=== PATIENT | female | born 1990 | race African-American/Black ===

== ENCOUNTER 2016-05-16 06:57 | Emergency (ER) | payer OTHER, MEDICAID ==
[~2016-05-16] VITALS: Ht 165.1 cm; Wt 62.0 kg
[2016-05-16 06:59] VITALS: BP 118/72; PULSE 112; RESP 20; TEMP 99; O2SAT 99
--- NOTE | 2016-05-16 07:26 | PD ---
HPI Chief Complaint: Abdominal Pain Time Seen by Provider: 07:24 Travel History International Travel<30 days: No Contact w/Intl Traveler<30days: No Traveled to known affect area: No History of Present Illness HPI 26-year-old female with no significant past medical issues, presents to the ER with several days' history of pelvic pains that started when she had an irregular menses 2 days ago. She states that she was passing large blood clots but it has since stopped bleeding. She states that her last menses was at the end of April. She denies any unusual vaginal discharge, burning on urination , nausea, vomiting, or other symptoms. She states that she has not been sexually active for at least a month and a half. Modifying Factors: None Associated Signs & Symptoms: Pelvic pains, irregular vaginal bleeding Risk Factors: None PFSH Past Medical History LMP: 05/14/16 Social History Tobacco Use: No Allergies-Medications (Allergen,Severity, Reaction): Coded Allergies: No Known Allergies (Unverified , 05/16/16) Reported Meds & Prescriptions Reported Meds & Active Scripts Active No Active Prescriptions or Reported Medications Review of Systems Except as stated in HPI: all other systems reviewed are Neg Physical Exam Narrative GENERAL: Well-nourished, well-developed young -[place] female patient in no acute distress. SKIN: Warm and dry. HEAD: Normocephalic. EYES: No scleral icterus. No injection or drainage. NECK: Supple, trachea midline. CARDIOVASCULAR: Regular rate and rhythm without murmurs, gallops, or rubs. RESPIRATORY: Breath sounds equal bilaterally. No accessory muscle use. GASTROINTESTINAL: Abdomen soft, mild pelvic tenderness without guarding or rebound, nondistended. MUSCULOSKELETAL: No cyanosis, or edema. BACK: Nontender without obvious deformity. No CVA tenderness. Data Data Last Documented VS Vital Signs Date Time Temp Pulse Resp B/P Pulse Ox O2 Delivery O2 Flow Rate FiO2 05/16/16 07:38 18 100 Room Air 05/16/16 06:59 99.0 112 118/72 Orders Complete Blood Count With Diff (05/16/16 07:20) Comprehensive Metabolic Panel (05/16/16 07:20) Lipase (05/16/16 07:20) Urinalysis - C+S If Indicated (05/16/16 07:20) Iv Access Insert/Monitor (05/16/16 07:20) Ecg Monitoring (05/16/16 07:20) Oximetry (05/16/16 07:20) Sodium Chloride 0.9% Flush (Ns Flush) (05/16/16 07:30) Ed Urine Pregnancytest Poc (05/16/16 07:20) Urine Culture (05/16/16 07:30) Labs Laboratory Tests Test 05/16/16 05/16/16 07:30 07:35 Urine Color YELLOW Urine Turbidity HAZY Urine pH 6.5 Urine Specific [place] 1.015 Urine Protein NEG mg/dL Urine Glucose (UA) NEG mg/dL Urine Ketones NEG mg/dL Urine Occult Blood TRACE Urine Nitrite NEG Urine Bilirubin NEG Urine Urobilinogen LESS THAN 2.0 MG/DL Urine Leukocyte Esterase LARGE Urine RBC 6 /hpf Urine WBC 19 /hpf Urine Squamous Epithelial 4 /hpf Cells Urine Mucus FEW /lpf Urine Trichomonas FEW Microscopic Urinalysis Comment CULTURE INDICATED White Blood Count 12.1 TH/MM3 Red Blood Count 4.60 MIL/MM3 Hemoglobin 12.4 GM/DL Hematocrit 37.6 % Mean Corpuscular Volume 81.7 FL Mean Corpuscular Hemoglobin 26.9 PG Mean Corpuscular Hemoglobin 32.9 % Concent Red Cell Distribution Width 15.7 % Platelet Count 255 TH/MM3 Mean Platelet Volume 9.5 FL Neutrophils (%) (Auto) 79.9 % Lymphocytes (%) (Auto) 11.7 % Monocytes (%) (Auto) 7.2 % Eosinophils (%) (Auto) 0.7 % Basophils (%) (Auto) 0.5 % Neutrophils # (Auto) 9.7 TH/MM3 Lymphocytes # (Auto) 1.4 TH/MM3 Monocytes # (Auto) 0.9 TH/MM3 Eosinophils # (Auto) 0.1 TH/MM3 Basophils # (Auto) 0.1 TH/MM3 CBC Comment DIFF FINAL Differential Comment Sodium Level 139 MEQ/L Potassium Level 3.8 MEQ/L Chloride Level 105 MEQ/L Carbon Dioxide Level 27.0 MEQ/L Anion Gap 7 MEQ/L Blood Urea Nitrogen 7 MG/DL Creatinine 0.60 MG/DL Estimat Glomerular Filtration 123 ML/MIN Rate Random Glucose 96 MG/DL Calcium Level 8.4 MG/DL Total Bilirubin 0.7 MG/DL Aspartate Amino Transf 12 U/L (AST/SGOT) Alanine Aminotransferase 13 U/L (ALT/SGPT) Alkaline Phosphatase 78 U/L Total Protein 7.5 GM/DL Albumin 3.7 GM/DL Lipase 91 U/L MDM Medical Decision Making Medical Screen Exam Complete: Yes Emergency Medical Condition: Yes Medical Record Reviewed: Yes Interpretation(s) Laboratory Tests Test 05/16/16 05/16/16 07:30 07:35 Urine Turbidity HAZY (CLEAR) Urine Occult Blood TRACE (NEG) Urine Leukocyte Esterase LARGE (NEG) Urine RBC 6 /hpf (0-3) Urine WBC 19 /hpf (0-5) Urine Mucus FEW /lpf (OCC) Urine Trichomonas FEW (NONE) White Blood Count 12.1 TH/MM3 (4.0-11.0) Mean Corpuscular Hemoglobin 26.9 PG (27.0-34.0) Neutrophils (%) (Auto) 79.9 % (16.0-70.0) Neutrophils # (Auto) 9.7 TH/MM3 (1.8-7.7) Calcium Level 8.4 MG/DL (8.5-10.1) Aspartate Amino Transf 12 U/L (15-37) (AST/SGOT) Differential Diagnosis Pelvic pains, vaginal bleeding, passing clotsdysmenorrhea versus versus UTI Narrative Course Patient is not . Abdomen is benign and I do not suspect an acute intra- abdominal process. Lab work does show some UTI. Patient states that she did have some problems with feeling like she needs to push to go, urinary urgency. I do not suspect acute intra-abdominal processes in this case and she is not , so ectopic is not a consideration here. At this point, my plan would be to treat her UTI and have her follow-up with primary care physician or [facility]. Return for any worsening in symptoms as necessary. The plan has been discussed with her and she states understanding. Diagnosis Primary Impression: UTI (urinary tract infection) Qualified Code: N30.00 - Acute cystitis without hematuria Med/Other Pt SpecificInfo: Prescription(s) given Scripts Phenazopyridine (Pyridium)100 Mg [id number] Mg PO Q8H PRN (DYSURIA) #15 TAB Ref 0 Prov:Praveen Pires MD 05/16/16 Nitrofurantoin Monohydrate Macrocrystals (Macrobid)100 Mg [id number] Mg PO BID 7 Days Ref 0 Prov:Soonthrivera,Rewadee MD 05/16/16 Disposition: 01 DISCHARGE HOME Condition: Stable Praveen Pires MD May 16, 2016 07:26
[2016-05-16] MEDS ORDERED: SODIUM CHLORIDE 0.9% FLUSH 5 ML FLUSH IVF PRN (07:30)
[2016-05-16 07:38] VITALS: RESP 18; O2SAT 100
[2016-05-16 07:45] LABS: BLOOD, URINE TRACE (NEG); COMMENT (UR) CULTURE INDICATED; CULTURE IF INDICATED CULTURE INDICATED; GLUCOSE,URINE NEG (NEG); KETONE, URINE NEG (NEG); MUCUS URINE FEW /lpf (OCC); NITRITE,URINE NEG (NEG); PH, URINE 6.5 (5.0-8.5); SQUAMOUS EPITHELIAL CELL URINE 4 /hpf (0-5); URINE COLOR YELLOW (YELLW/STRAW)
[2016-05-16 07:48] LABS: AUTOMATED NEUTROPHIL # 9.7 TH/MM3 (1.8-7.7); BASOPHIL # 0.1 TH/MM3 (0-0.2); BASOPHIL % 0.5 % (0.0-2.0); EOSINOPHIL # 0.1 TH/MM3 (0-0.4); EOSINOPHIL % 0.7 % (0.0-4.0); HEMATOCRIT 37.6 % (35.0-46.0); HEMO FLAGS DIFF FINAL; LYMPH % 11.7 % (9.0-44.0); LYMPHOCYTE # 1.4 TH/MM3 (1.0-4.8); MEAN CELL VOLUME 81.7 FL (80.0-100.0); MEAN CORPUSCULAR HEMOGLOBIN 26.9 PG (27.0-34.0); MEAN CORPUSCULAR HGB CONC 32.9 % (32.0-36.0); MONO % 7.2 % (0.0-8.0); NEUT % 79.9 % (16.0-70.0); PLATELET COUNT 255 TH/MM3 (150-450); RED CELL DISTRIBUTION WIDTH 15.7 % (11.6-17.2); WHITE BLOOD COUNT 12.1 TH/MM3 (4.0-11.0)
[2016-05-16 08:03] LABS: ALT (GPT) 13 U/L (10-53); ANION GAP 7 MEQ/L (5-15); AST (GOT) 12 U/L (15-37); BLOOD UREA NITROGEN 7 MG/DL (7-18); CHLORIDE 105 MEQ/L (98-107); GLOMERULAR FILTRATION RATE 123 ML/MIN (>89); POTASSIUM 3.8 MEQ/L (3.5-5.1); SODIUM (NA) 139 MEQ/L (136-145)
[2016-05-16 08:06] LABS: ALKALINE PHOSPHATASE 78 U/L (45-117); TOTAL BILIRUBIN ADULT 0.7 MG/DL (0.2-1.0)
[2016-05-16] MEDS ORDERED: MACR100C2 PO (08:28)
[2016-05-16] MEDS ORDERED: PHEN0.4T PO (08:28)
== END 2016-05-16 09:41 | disposition home or self-care (01) ==
LOC: NEPC 06:57
DX: N39.0 Urinary tract infection, site not specified (principal); N92.6 Irregular menstruation, unspecified
CPT/HCPCS: 80053; 81001; 83690; 84703; 85025; 87086; 99284

== ENCOUNTER 2016-07-08 17:11 | Emergency (ER) | payer MEDICAID, OTHER ==
[~2016-07-08] VITALS: Ht 167.6 cm; Wt 65.0 kg
[~2016-07-08 17:11] MED LIST: MACR100C2 PO; PHEN0.4T PO
[2016-07-08 17:12] VITALS: BP 115/75; PULSE 92; RESP 16; TEMP 97.9; O2SAT 99
[2016-07-08] MEDS ORDERED: DICL75TA PO (19:51)
--- NOTE | 2016-07-08 19:55 | PD ---
HPI Chief Complaint: Headache Time Seen by Provider: 19:51 Travel History International Travel<30 days: No Contact w/Intl Traveler<30days: No Traveled to known affect area: No History of Present Illness HPI 26-year-old black female presents to emergency department with a three-day history of frontal headache. She states that she has pressure type pounding between her eyes and behind her nose. She denies any cold symptoms. She states that she has had a history of migraines in the past. She is taking over- the-counter medications without relief. He denies any fever or chills. No blurred vision or double vision. No nausea vomiting. No numbness, tingling or weakness. No recent illness. Symptoms are moderate. No alleviating factors. No exacerbating factors. PFSH Past Medical History Narrative Medical Migraines Tetanus Vaccination: < 5 Years ?: Not LMP: 06/04/16 : 5 Para: 2 : 3 Dilation and Curettage (D&C): Yes Past Surgical History Surgical History: No Previous Surgery Social History Alcohol Use: Yes (OCC) Tobacco Use: No Substance Use: No Allergies-Medications (Allergen,Severity, Reaction): Coded Allergies: No Known Allergies (Unverified , 05/16/16) Reported Meds & Prescriptions Reported Meds & Active Scripts Active Pyridium (Phenazopyridine HCl) 100 Mg Tab 100 Mg PO Q8H PRN Macrobid (Nitrofurantoin Monoh/Nitrofur Macro) 100 Mg Cap 100 Mg PO BID 7 Days Review of Systems Except as stated in HPI: all other systems reviewed are Neg Physical Exam Narrative GENERAL: Well-developed, well-nourished in no apparent distress. Nontoxic appearing. HEAD: Normocephalic, atraumatic. No pain on percussion of sinuses. EYES: Pupils equal round and reactive. Extraocular motions intact. No scleral icterus. No injection or drainage. ENT: Nose clear. Throat without erythema, tonsillar hypertrophy or exudate. Uvula midline. Airway patent. NECK: Trachea midline. Supple, nontender, moves head freely. No central bony tenderness or spasm. CARDIOVASCULAR: Regular rate and rhythm without murmurs, gallops, or rubs. RESPIRATORY: Clear to auscultation. Breath sounds equal bilaterally. No wheezes , rales, or rhonchi. GASTROINTESTINAL: Abdomen soft, non-tender, nondistended. No hepato-splenomegaly , or palpable masses. No guarding. EXTREMITIES: No clubbing, cyanosis, or edema. No joint tenderness. BACK: Nontender without deformity. No flank tenderness. NEUROLOGICAL: Awake, alert and oriented x 3 .Cranial nerves grossly intact. Motor and sensory grossly within normal limits. Normal speech. Normal gait. Normal tandem gait. Normal finger to nose. Data Data Last Documented VS Vital Signs Date Time Temp Pulse Resp B/P Pulse Ox O2 Delivery O2 Flow Rate FiO2 07/08/16 17:12 97.9 92 16 115/75 99 Room Air Orders Ketorolac Inj (Toradol Inj) (07/08/16 20:00) Acetamin-Hydrocod 325-5 Mg ([place] 5-325 (07/08/16 20:00) MDM Medical Decision Making Medical Screen Exam Complete: Yes Emergency Medical Condition: Yes Medical Record Reviewed: Yes Differential Diagnosis MDM: High Differential diagnoses: Subarachnoid hemorrhage, intracranial bleed, aneurysm, pseudotumor, migraine, cluster headache, atypical migraine, temporal arteritis, connective tissue disorder, hypertension, temporal arteritis, sinusitis, sinus headache,malingering Narrative Course Patient's given Toradol 60 mg IM and Lortab 5 a grams by mouth. This is cephalgia Diagnosis Primary Impression: Cephalgia Patient Instructions: General Instructions Additional Instructions: Rest. Afrin nasal spray for the next few days. Diclofenac for pain. Follow-up with medical doctor within one week. Return to the ER for emergencies. Med/Other Pt SpecificInfo: Prescription(s) given Scripts Diclofenac Sodium DR 75 Mg Tabdr75 Mg PO BID #20 TAB Prov:Jeremiah Newamn MD 07/08/16 Disposition: 01 DISCHARGE HOME Condition: Stable Ulises Espinal Jul 08, 2016 19:55
[2016-07-08] MEDS ORDERED: ACETAMINOPHEN/HYDROcodone 325 MG/5 MG TAB PO ONE (20:00)
[2016-07-08] MEDS ORDERED: KETOROLAC TROMETHAMINE 60 MG/2 ML (IM) VIAL IM ONE (20:00)
== END 2016-07-08 20:37 | disposition home or self-care (01) ==
LOC: NETRI 17:11
DX: R51 Headache (principal)
CPT/HCPCS: 96372; 99283; J1885